=== PATIENT | male | born 1960 | race Asian ===

== ENCOUNTER 2019-06-22 07:57 | Emergency (ER) | payer OTHER ==
[~2019-06-22] VITALS: Ht 167.6 cm; Wt 85.7 kg
[2019-06-22 08:08] VITALS: TEMP 98.2
[2019-06-22 08:42] LABS: PLATELET COUNT 248 K/uL (142-355); POTASSIUM 3.7 mmol/L (3.6-5.2)
[2019-06-22 10:35] VITALS: BP 159/66
== END 2019-06-22 10:34 | disposition home or self-care (01) ==
LOC: ED 07:57
PROVIDERS: Emergency Medicine
DX: I10 Essential (primary) hypertension (principal); F17.290 Nicotine dependence, other tobacco product, uncomplicated
CPT/HCPCS: 80053; 81000; 82550; 83735; 84484; 85027; 93005; 96374; 99284; J1940